=== PATIENT | female | born 1965 | race Caucasian/White ===

== ENCOUNTER 2016-04-17 08:58 | Emergency (ER) | payer BC | END 2016-04-17 12:48 | disposition home or self-care (01) | LOC: ER 08:58 | DX: S46.812A Strain of other muscles, fascia and tendons at shoulder and upper arm level, left arm, initial encounter (principal); J18.9 Pneumonia, unspecified organism; F17.210 Nicotine dependence, cigarettes, uncomplicated; Z79.899 Other long term (current) drug therapy; F41.9 Anxiety disorder, unspecified | CPT/HCPCS: 36415; 71020; 72050; 80048; 82553; 84484; 85025; 93005 ==